=== PATIENT | female | born 1955 | race Caucasian/White ===

== ENCOUNTER 2016-07-31 08:03 | Day surgery (SDC) | payer OTHER ==
[2016-07-29 16:50] LABS: HEMATOCRIT 38.9 % (36.0-48.0); HEMOGLOBIN 13.4 g/dL (12.0-16.0)
[2016-07-29 17:30] LABS: BUN (BLOOD UREA NITROGEN) 16 MG/DL (6-23); CALCIUM, SERUM 9.5 MG/DL (8.5-10.4); CHLORIDE, SERUM 105 MMOL/L (96-112); CO2 (CARBON DIOXIDE) 31 MMOL/L (24-34); CREATININE 0.92 MG/DL (0.55-1.02); GFR AFRICAN AMERICAN 77 ML/MIN (>=60); GFR NON AFRICAN AMERICAN 66 ML/MIN (>=60); GLUCOSE, SERUM 81 MG/DL (60-99); POTASSIUM, SERUM 3.9 MMOL/L (3.5-5.3); SODIUM, SERUM 141 MMOL/L (135-148)
--- NOTE | ~2016-07-31 | OP ---
Record Of Operation [facility] [address] [place]. [address] NAME: RUTHANN HEARN : 51 STATUS : REG [facility] PAT#: [id number] AGE: 61 ADM/REG DATE : 07/31/16 MR#: [id number] REPORT SERV DATE: 07/31/16 DICTATED BY: JOHN SINGLETON DATE: 07/31/16 REPORT STATUS : Draft TRANSCRIBED BY: MODL DATE: 07/31/16 DATE OF PROCEDURE: 07/31/2016 SURGEON: John Singleton MD. SERVICE: Otolaryngology. PREOPERATIVE DIAGNOSIS: Right submandibular sialadenitis. POSTOPERATIVE DIAGNOSIS: Right submandibular sialadenitis. PROCEDURE PERFORMED: Right Candice's duct sialolithotomy. INDICATIONS FOR PROCEDURE: The patient is a 61-year-old female with right acute sialadenitis status post treatment with antibiotics and steroids. The acute phase of the sialadenitis has resolved. She continues to have right submandibular swelling and pain. She presents for surgical management. SPECIMENS: Right submandibular stone. ANESTHESIA: General nasotracheal tube. COMPLICATIONS: None. OPERATIVE FINDING: Fullness to the right submandibular gland with expression of two separate stones upon conclusion of sialolithotomy. ESTIMATED BLOOD LOSS: Minimal. RETAINED ITEMS: None. DESCRIPTION OF PROCEDURE: The patient was identified in the preoperative holding, where informed consent was ensured. She was brought to the operating room, placed on the operating room table in supine position. General nasotracheal anesthesia was induced without difficulty. A time-out was performed to correctly identify the patient and discuss operative plan. The patient was then prepped and draped in the standard sterile surgical fashion for this procedure. The oral cavity was opened with a Chazy retractor. Denhardt retractor was also placed to better establish view of floor of the mouth. [place]'s duct on the right was identified and cannulated with a lacrimal probe dilator. A combination of Bovie and blunt dissection was then used to enter the duct and traced this posteriorly towards the hilum of the submandibular gland. The mucosa of the duct itself was sewed to the mucosa of the floor of the mouth, thereby flaying the duct and ensuring a patent submandibular duct. Sequential dilation was performed increasing the size of the dilators each time. On manual palpation, two less than 5 mm stones were expressed from the submandibular duct. The submandibular Record Of [facility] [address] [place]. [address] NAME: RUTHANN HEARN : 51 STATUS : REG [facility] PAT#: [id number] AGE: 61 ADM/REG DATE : 07/31/16 MR#: [id number] REPORT SERV DATE: 07/31/16 DICTATED BY: JOHN SINGLETON DATE: 07/31/16 REPORT STATUS : Draft TRANSCRIBED BY: MODL DATE: 07/31/16 gland was copiously irrigated with saline solution. Kenalog 40 mg/mL was then injected into the submandibular gland. The patient's oral cavity and oropharynx were suctioned. Equipment was withdrawn from the patient's oral cavity. She was turned over to Anesthesia for awakening and extubation, and transported to the PACU in stable condition. DISPOSITION: The patient will follow up in one week for postoperative evaluation. /HARI John Singleton MD / [id number] CC: MD Sampson Benitez M.D.
[~2016-07-31 08:03] MED LIST: ADVAIR250 INH; AMB10 PO; FLEX PO; LORTAB10 PO; MAXALT10 MG PO; MEP50TAB PO; PR25 PO; PROZAC PO; SYMBICORT 160/41 INH INH; X25 PO; ZOFRAN8 PO
== END 2016-07-31 16:02 | disposition home or self-care (01) ==
LOC: SDC 08:03
PROVIDERS: Otolaryngology
PROC: 0CCG0ZZ Extirpation of Matter from Right Submaxillary Gland, Open Approach (ICD-10-PCS; principal; 2016-07-31 09:45)
DX: K11.5 Sialolithiasis (principal); K11.21 Acute sialoadenitis; J44.9 Chronic obstructive pulmonary disease, unspecified; R13.10 Dysphagia, unspecified; F17.210 Nicotine dependence, cigarettes, uncomplicated; Z95.0 Presence of cardiac pacemaker; Z88.0 Allergy status to penicillin; Z90.89 Acquired absence of other organs; Z90.710 Acquired absence of both cervix and uterus; Z98.1 Arthrodesis status; Z79.899 Other long term (current) drug therapy
CPT/HCPCS: 80048; 85014; 85018; 88300; 93005; A9270-GY; J2405; J2710; J3010; J3301